=== PATIENT | male | born 1980 | race Caucasian/White ===

== ENCOUNTER 2017-01-29 20:58 | Emergency (ER) | payer OTHER ==
[~2017-01-29] VITALS: Ht 167.6 cm; Wt 74.7 kg
[~2017-01-29 20:58] MED LIST: ADVAIR 250/501 DISK IH; ALBUTEROL SULF8.5 GM IH; AZITHROMYCIN500 M1 PO; FLOVENT 11120 INHALA IH; MUCINEX600 MG PO; NOHOMEMEDS; OXYCODONE-ACET1 EACH PO; PHENERGAN-CODE120 ML PO; PREDNISONE10 MG PO; PREDNISONE20 MG PO; PREDNISONE50 MG PO; PROVENTIL HFA6.7 GM IH; PROVENTIL,2.5 MG/3 M IH; PROVENTIL2.5 MG/3 M IH; SYMBICORT60 INHALA1 IH; VENTOLIN HFA18 GM IH; ZITHROMAX Z-PA250 MG PO
[2017-01-29 22:22] LABS: HEMATOCRIT 55.2 % (38.0-50.0); MCH 31.9 PG (29.0-34.0); MCHC 34.6 G/DL (30.0-36.0); MCV 92.2 FL (86-99); RBC DIS.WIDTH-CV 14.6 % (11.8-14.6); RBC DIS.WIDTH-SD 49.1 % (39-53); RED BLOOD COUNT 5.99 M/uL (4.00-5.50)
[2017-01-29 22:32] LABS: CHLORIDE 106 mEq/L (99-109); POTASSIUM 3.4 mEq/L (3.7-5.4); SODIUM 141 mEq/L (136-147)
[2017-01-29 22:34] LABS: GLUCOSE 123 mg/dL (70-99)
[2017-01-29 22:35] LABS: ANION GAP 14 MEQ/L (2-14)
[2017-01-29 22:38] LABS: GFR ESTIMATE (CALCULATED) > 59 mL/min/
[2017-01-29 22:39] LABS: UREA NITROGEN (BUN) 6 mg/dL (9-23)
[2017-01-29 23:20] LABS: PROTHROMBIN TIME 10.4 (9.2-11.2); PTT 28.2 (25-32)
[2017-01-30 00:58] LABS: PLAT.SUFFICIENCY ADEQUATE; PLATELET COUNT 209 K/uL (156-360)
[2017-01-30] MEDS ORDERED: VENTOLIN HFA18 GM IH (01:28)
[2017-01-30] MEDS ORDERED: PREDNISONE20 MG PO (01:28)
[2017-01-30 02:25] VITALS: BP 133/80
== END 2017-01-30 02:26 | disposition home or self-care (01) ==
LOC: EME → EDBD 20:58 → EME 20:58
PROVIDERS: Emergency Medicine
DX: J44.1 Chronic obstructive pulmonary disease with (acute) exacerbation (principal); Z87.891 Personal history of nicotine dependence
CPT/HCPCS: 71275; 80048; 85027; 85610; 85730; 93005; 94640; 99281; 99285; J2930; J3475; J7030

== ENCOUNTER 2017-03-20 10:20 | Emergency (ER) | payer OTHER ==
[~2017-03-20] VITALS: Ht 167.6 cm; Wt 70.0 kg
[2017-03-20 11:38] LABS: HEMATOCRIT 49.4 % (38.0-50.0); MCH 31.7 PG (29.0-34.0); MCHC 35.8 G/DL (30.0-36.0); MCV 88.5 FL (86-99); MEAN PLAT.VOLUME 10.5 uM^3 (9.0-12.4); PLATELET COUNT 197 K/uL (156-360); RBC DIS.WIDTH-CV 13.1 % (11.8-14.6); RBC DIS.WIDTH-SD 42.4 % (39-53); RED BLOOD COUNT 5.58 M/uL (4.00-5.50); WHITE BLOOD COUNT 11.2 K/uL (4.1-10.2)
[2017-03-20 11:50] LABS: CHLORIDE 96 mEq/L (99-109); POTASSIUM 3.8 mEq/L (3.7-5.4); SODIUM 139 mEq/L (136-147)
[2017-03-20 11:51] LABS: GLUCOSE 107 mg/dL (70-99)
[2017-03-20 11:53] LABS: ANION GAP 16 MEQ/L (2-14)
[2017-03-20 11:55] LABS: GFR ESTIMATE (CALCULATED) > 59 mL/min/; SERUM ETHYL ALCOHOL < 10 mg/dL
[2017-03-20 11:56] LABS: UREA NITROGEN (BUN) 9 mg/dL (9-23)
[2017-03-20 12:49] LABS: AMPHETAMINE NEGATIVE (500 ng/mL); BARBITURATES NEGATIVE (200 ng/mL); BENZODIAZEPINES NEGATIVE (150 ng/mL); COCAINE NEGATIVE (150 ng/mL); INTERNAL CONTROLS VALID? YES; METHADONE NEGATIVE (200 ng/mL); METHAMPHETAMINE NEGATIVE (500 ng/mL); OPIATES (MORPHINE) NEGATIVE (100 ng/mL); OXYCODONE NEGATIVE (100 ng/mL); PHENCYCLIDINE NEGATIVE (25 ng/mL); PROPOXYPHENE NEGATIVE (300 ng/mL); THC CANNABINOIDS NEGATIVE (50 ng/mL); TRICYCLIC ANTIDEPRESSANTS NEGATIVE (300 ng/mL)
[2017-03-20] MEDS ORDERED: PREDNISONE50 MG PO (15:09)
[2017-03-20 15:35] VITALS: BP 141/83
== END 2017-03-20 15:37 | disposition home or self-care (01) ==
LOC: EME 10:20
PROVIDERS: Emergency Medicine
DX: J44.9 Chronic obstructive pulmonary disease, unspecified (principal); F32.9 Major depressive disorder, single episode, unspecified; F43.23 Adjustment disorder with mixed anxiety and depressed mood; Z86.718 Personal history of other venous thrombosis and embolism; Z87.891 Personal history of nicotine dependence
CPT/HCPCS: 71020; 80048; 85027; 90839; 93005; 94640; 99281; 99285; G0480; J3360; J7030; J7512

== ENCOUNTER 2017-04-13 17:53 | Emergency (ER) | payer OTHER ==
[~2017-04-13] VITALS: Ht 167.6 cm; Wt 71.4 kg
[2017-04-13 20:42] LABS: HEMATOCRIT 48.1 % (38.0-50.0); MCH 31.1 PG (29.0-34.0); MCHC 34.7 G/DL (30.0-36.0); MCV 89.6 FL (86-99); RBC DIS.WIDTH-CV 13.8 % (11.8-14.6); RBC DIS.WIDTH-SD 45.3 % (39-53); RED BLOOD COUNT 5.37 M/uL (4.00-5.50); WHITE BLOOD COUNT 17.3 K/uL (4.1-10.2)
[2017-04-13 20:49] LABS: CHLORIDE 98 mEq/L (99-109); POTASSIUM 3.7 mEq/L (3.7-5.4); SODIUM 139 mEq/L (136-147)
[2017-04-13 20:50] LABS: GLUCOSE 121 mg/dL (70-99)
[2017-04-13 20:52] LABS: ANION GAP 21 MEQ/L (2-14)
[2017-04-13 20:54] LABS: GFR ESTIMATE (CALCULATED) > 59 mL/min/
[2017-04-13 20:55] LABS: UREA NITROGEN (BUN) 10 mg/dL (9-23)
[2017-04-13 20:59] LABS: TROP-I INTERPRETATION NEGATIVE; TROPONIN-I < 0.01 ng/mL (0.0-0.30)
[2017-04-13 21:23] LABS: MEAN PLAT.VOLUME 11.1 uM^3 (9.0-12.4); PLAT.SUFFICIENCY ADEQUATE
[2017-04-13 21:40] LABS: PLATELET COUNT 274 K/uL (156-360)
[2017-04-13] MEDS ORDERED: PREDNISONE50 MG PO (21:40)
[2017-04-13] MEDS ORDERED: DOXYCYCLINE HY100 MG PO (21:40)
[2017-04-13 22:11] VITALS: BP 118/92
== END 2017-04-13 22:15 | disposition home or self-care (01) ==
LOC: EME 17:53
DX: J45.901 Unspecified asthma with (acute) exacerbation (principal); Z87.01 Personal history of pneumonia (recurrent); Z86.718 Personal history of other venous thrombosis and embolism; Z87.891 Personal history of nicotine dependence
CPT/HCPCS: 71020; 80048; 84484; 85027; 93005; 99281; 99284

== ENCOUNTER 2017-11-04 07:54 | Emergency (ER) | payer OTHER ==
[~2017-11-04] VITALS: Ht 167.6 cm; Wt 75.3 kg
[~2017-11-04 07:54] MED LIST changes: +DOXYCYCLINE HY100 MG PO
[2017-11-04] MEDS ORDERED: VENTOLIN HFA18 GM IH (09:17)
[2017-11-04] MEDS ORDERED: PREDNISONE50 MG PO (09:17)
[2017-11-04 09:39] VITALS: BP 127/66
== END 2017-11-04 09:40 | disposition home or self-care (01) ==
LOC: EME 07:54
DX: J45.901 Unspecified asthma with (acute) exacerbation (principal); J44.9 Chronic obstructive pulmonary disease, unspecified; Z87.891 Personal history of nicotine dependence; Z86.718 Personal history of other venous thrombosis and embolism
CPT/HCPCS: 71046; 94640; 94640 76; 99281; 99285; J7512

== ENCOUNTER 2017-11-06 07:34 | Emergency (ER) | payer OTHER ==
[~2017-11-06] VITALS: Ht 167.6 cm; Wt 76.3 kg
[2017-11-06 08:16] LABS: HEMATOCRIT 51.5 % (38.0-50.0); HEMOGLOBIN 17.8 G/DL (12.5-16.6); MCH 32.4 PG (29.0-34.0); MCHC 34.6 G/DL (30.0-36.0); MCV 93.6 FL (86-99); RBC DIS.WIDTH-CV 13.6 % (11.8-14.6); WHITE BLOOD COUNT 6.7 K/uL (4.1-10.2)
[2017-11-06 08:56] LABS: CHLORIDE 103 MEQ/L (99-109); CREATININE 0.9 MG/DL (0.6-1.3); GFR ESTIMATE (CALCULATED) > 59 mL/min/ (58.99-99999); GLUCOSE 90 mg/dL (70-99); PLAT.SUFFICIENCY ADEQUATE; PLATELET COUNT 204 K/uL (156-360); POTASSIUM 3.5 MEQ/L (3.7-5.4); SODIUM 142 MEQ/L (136-147); UREA NITROGEN (BUN) 6 mg/dL (9-23)
[2017-11-06 12:20] VITALS: BP 133/75
== END 2017-11-06 12:22 | disposition home or self-care (01) ==
LOC: EME 07:34
DX: J44.1 Chronic obstructive pulmonary disease with (acute) exacerbation (principal); L40.9 Psoriasis, unspecified; Z87.891 Personal history of nicotine dependence; Z87.01 Personal history of pneumonia (recurrent); Z86.718 Personal history of other venous thrombosis and embolism; Z86.79 Personal history of other diseases of the circulatory system
CPT/HCPCS: 71046; 80048; 85027; 94640; 99281; 99285

== ENCOUNTER 2018-02-19 12:49 | Emergency (ER) | payer OTHER ==
[~2018-02-19] VITALS: Ht 167.6 cm; Wt 64.6 kg
[2018-02-19 14:46] LABS: CHLORIDE 101 mEq/L (99-109); HEMATOCRIT 51.3 % (38.0-50.0); HEMOGLOBIN 18.1 G/DL (12.5-16.6); MCH 31.4 PG (29.0-34.0); MCHC 35.3 G/DL (30.0-36.0); MCV 88.9 FL (86-99); NRBC (%) 0.1 /100 WBC (0-0); POTASSIUM 3.2 mEq/L (3.7-5.4); RBC DIS.WIDTH-CV 13.5 % (11.8-14.6); RBC DIS.WIDTH-SD 43.9 % (39-53); RED BLOOD COUNT 5.77 M/uL (4.00-5.50); SODIUM 143 mEq/L (136-147); WHITE BLOOD COUNT 15.5 K/uL (4.1-10.2)
[2018-02-19 14:48] LABS: GLUCOSE 78 mg/dL (70-99)
[2018-02-19 14:52] LABS: CREATININE 0.9 mg/dL (0.6-1.3); GFR ESTIMATE (CALCULATED) > 59 mL/min/ (58.99-99999)
[2018-02-19 14:53] LABS: UREA NITROGEN (BUN) 8 mg/dL (9-23)
[2018-02-19 15:30] LABS: HEMATOLOGY COMMENT 1 SN; PLAT.SUFFICIENCY ADEQUATE; PLATELET COUNT 178 K/uL (156-360)
[2018-02-19] MEDS ORDERED: PREDNISONE20 MG PO (17:57)
[2018-02-19] MEDS ORDERED: ADVAIR 250/501 DISK IH (18:10)
[2018-02-19] MEDS ORDERED: VENTOLIN HFA18 GM IH (18:11)
[2018-02-19 18:40] VITALS: BP 136/64
== END 2018-02-19 18:42 | disposition home or self-care (01) ==
LOC: EME 12:49
PROVIDERS: Physician Assistant
DX: J45.901 Unspecified asthma with (acute) exacerbation (principal); J44.9 Chronic obstructive pulmonary disease, unspecified; Z86.718 Personal history of other venous thrombosis and embolism; Z87.891 Personal history of nicotine dependence
CPT/HCPCS: 71046; 80048; 85027; 94640; 94644; 99281; 99284; J1100; J3475; J7030